=== PATIENT | male | born 1980 | race Caucasian/White ===

== ENCOUNTER 2023-04-12 23:51 | Emergency (ER) | payer MEDICAID, OTHER ==
[~2023-04-12] VITALS: Ht 170.2 cm; Wt 91.0 kg
[2023-04-13] MEDS ORDERED: IBUPROFEN 600MG TABLET PO STA (00:17)
[2023-04-13 00:20] VITALS: BP 136/86; PULSE 92; RESP 18; TEMP 99; O2SAT 99
[2023-04-13] MEDS ORDERED: FLUORESCEIN SODIUM 1MG/STRIP RIGHTEYE ONE (00:30)
[2023-04-13] MEDS ORDERED: TETRACAINE 0.5% OPHTH DROPS 4ML RIGHTEYE ONE (00:30)
[2023-04-13] MEDS ORDERED: KETO5DRO73 RIGHTEYE (00:53)
== END 2023-04-13 01:31 | disposition home or self-care (01) ==
LOC: ER 23:51
DX: H10.9 Unspecified conjunctivitis (principal)
CPT/HCPCS: 99283